=== PATIENT | female | born 1995 | race American Indian/Alaskan Native ===

== ENCOUNTER 2016-06-01 13:21 | Emergency (ER) | payer SELFPAY ==
[2016-06-01 14:20] VITALS: BP 143/91
[2016-06-01 14:48] LABS: Basophils % (Auto) 1.3 % (0.0-1.8); Eosinophils % (Auto) 4.3 % (0.0-4.3); Hematocrit 35.3 % (30.3-42.9); Hemoglobin 11.4 gm/dl (10.1-14.3); Mean Corpuscular HGB Conc 32 % (30-34); Mean Corpuscular Hemoglobin 24 pg (28-32); Mean Corpuscular Volume 75 fl (79-97); Platelet Count 322 K/mm3 (140-440); Red Blood Count 4.69 M/mm3 (3.65-5.03); Red Cell Distribution Width 17.5 % (13.2-15.2); White Blood Count 5.9 K/mm3 (4.5-11.0)
[2016-06-01 15:05] LABS: Alanine Aminotransferase 12 units/L (7-56); Albumin 3.7 g/dL (3.9-5); Albumin/Globulin Ratio 0.8 %; Alkaline Phosphatase 83 units/L (35-129); Anion Gap 17 mmol/L; Bilirubin,Total 0.3 mg/dL (0.1-1.2); Blood Urea Nitrogen 10 mg/dL (7-17); Calcium 9.3 mg/dL (8.4-10.2); Carbon Dioxide 25 mmol/L (22-30); Chloride 102.4 mmol/L (98-107); Glucose 88 mg/dL (65-100); Lipase 13 units/L (13-60); Potassium 4.4 mmol/L (3.6-5.0); Sodium 140 mmol/L (137-145); Total Protein 8.1 g/dL (6.3-8.2)
[2016-06-01 15:57] LABS: Bilirubin,Urine NEG (Negative); Blood,Urine NEG (Negative); Ketones,Urine NEG (Negative); Leukocyte Esterase,Urine NEG (Negative); Mucus,Urine FEW /HPF; Nitrite,Urine NEG (Negative); Protein,Urine <15 mg/dL mg/dL (Negative); RBC,Urine < 1.0 /HPF (0.0-6.0); Urobilinogen,Urine < 2.0 mg/dL (<2.0)
--- NOTE | 2016-06-04 19:43 | ED Elopement Review ---
ED Pt Elopement review - Results review Lab results: Laboratory Tests 06/01/16 06/01/16 06/01/16 14:32 14:32 14:32 WBC 5.9 RBC 4.69 Hgb 11.4 Hct 35.3 MCV 75 L MCH 24 L MCHC 32 RDW 17.5 H Plt Count 322 Lymph % (Auto) 42.5 H Travis % (Auto) 10.2 H Eos % (Auto) 4.3 Baso % (Auto) 1.3 Lymph # 2.5 Travis # 0.6 Eos # 0.3 Baso # 0.1 Seg Neutrophils % 41.7 Seg Neutrophils # 2.4 Sodium 140 Potassium 4.4 Chloride 102.4 Carbon Dioxide 25 Anion Gap 17 BUN 10 Creatinine 0.5 L Estimated GFR > 60 BUN/Creatinine Ratio 20.00 Glucose 88 Calcium 9.3 Total Bilirubin 0.3 AST 18 ALT 12 Alkaline Phosphatase 83 Total Protein 8.1 Albumin 3.7 L Albumin/Globulin Ratio 0.8 Lipase 13 HCG, Qual Negative Urine Color Urine Turbidity Urine pH Ur Specific [place] Urine Protein Urine Glucose (UA) Urine Ketones Urine Blood Urine Nitrite Urine Bilirubin Urine Urobilinogen Ur Leukocyte Esterase Urine WBC (Auto) Urine RBC (Auto) U Epithel Cells (Auto) Urine Mucus 06/01/16 Unknown WBC RBC Hgb Hct MCV MCH MCHC RDW Plt Count Lymph % (Auto) Travis % (Auto) Eos % (Auto) Baso % (Auto) Lymph # Travis # Eos # Baso # Seg Neutrophils % Seg Neutrophils # Sodium Potassium Chloride Carbon Dioxide Anion Gap BUN Creatinine Estimated GFR BUN/Creatinine Ratio Glucose Calcium Total Bilirubin AST ALT Alkaline Phosphatase Total Protein Albumin Albumin/Globulin Ratio Lipase HCG, Qual Urine Color Yellow Urine Turbidity Clear Urine pH 7.0 Ur Specific [place] 1.018 Urine Protein <15 mg/dl Urine Glucose (UA) Neg Urine Ketones Neg Urine Blood Neg Urine Nitrite Neg Urine Bilirubin Neg Urine Urobilinogen < 2.0 Ur Leukocyte Esterase Neg Urine WBC (Auto) 1.0 Urine RBC (Auto) < 1.0 U Epithel Cells (Auto) < 1.0 Urine Mucus Few - Call Back decision Pt Call Back Decision: No action required
== END 2016-06-01 20:30 | disposition left against medical advice (07) ==
LOC: ED 13:21
DX: R10.9 Unspecified abdominal pain (principal); J37.0 Chronic laryngitis; F12.90 Cannabis use, unspecified, uncomplicated; Z91.048 Other nonmedicinal substance allergy status; Z53.21 Procedure and treatment not carried out due to patient leaving prior to being seen by health care provider
CPT/HCPCS: 36415; 80053; 81001; 83690; 84703; 85025

== ENCOUNTER 2017-11-14 12:33 | Emergency (ER) | payer SELFPAY ==
[2017-11-14 12:52] VITALS: BP 143/73
[2017-11-14 14:45] LABS: Bilirubin,Urine NEG (Negative); Blood,Urine SM (Negative); Color,Urine Straw (Yellow); Protein,Urine <15 mg/dL mg/dL (Negative); Urobilinogen,Urine < 2.0 mg/dL (<2.0); WBC,Urine < 1.0 /HPF (0.0-6.0)
== END 2017-11-14 16:53 | disposition left against medical advice (07) ==
LOC: ED 12:33
DX: N93.9 Abnormal uterine and vaginal bleeding, unspecified (principal); Z53.21 Procedure and treatment not carried out due to patient leaving prior to being seen by health care provider
CPT/HCPCS: 81001